=== PATIENT | male | born 1965 | race American Indian/Alaskan Native ===

== ENCOUNTER 2017-06-13 10:36 | Outpatient (CLI) | payer BC ==
--- NOTE | 2017-06-18 10:42 | Magnetic Resonance Report ---
MRI OF THE BRAIN AND PITUITARY WITHOUT AND WITH CONTRAST: 06/13/17 CLINICAL: Hypopituitarism COMPARISON: None. TECHNIQUE: Sagittal T1, axial FLAIR and T2 whole brain sequences plus sagittal, coronal and axial thin slice postcontrast T1 pituitary sequences on a 1.5 Valerie magnet. 10cc of Multihance was injected intravenously for the contrast portion of the exam and consent was obtained prior to the administration of the contrast. Thin section coronal dynamic post contrast sequences were attempted but the patient became nauseated after the injection of contrast and only one phase of postcontrast thin section coronal images were obtained. FINDINGS: The ventricles and sulci are normal for age. The anterior pituitary is normal in size and signal. The posterior pituitary is mildly enlarged and has abnormal heterogeneous signal with several nonenhancing cysts. The entire neurohypophysis measures 9 x 7 x 9 mm and a dominant nonenhancing cyst measures 4 mm. At least 2 smaller additional cysts of the posterior pituitary. The mildly enlarged neurohypophysis displaces the stalk anteriorly and the stalk deviates slightly to the left of midline. The suprasellar cistern, optic chiasm appear normal. The cavernous sinuses appear normal. 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 Followup imaging with additional thin section T2 and thin section postcontrast coronal sequences may be helpful for better characterization of the posterior pituitary.
== END 2017-06-13 10:37 | disposition home or self-care (01) ==
LOC: SPVIMAG 10:36
PROVIDERS: ATTEND Internal Medicine
DX: D35.2 Benign neoplasm of pituitary gland (principal); E23.0 Hypopituitarism; E23.6 Other disorders of pituitary gland; R93.0 Abnormal findings on diagnostic imaging of skull and head, not elsewhere classified
CPT/HCPCS: 70553; A9577